=== PATIENT | female | born 1935 | race African-American/Black ===

== ENCOUNTER 2016-03-29 20:19 | Observation (INO) | payer MEDICARE ==
[2016-03-29 20:51] LABS: Hematocrit 37 % (35-47); Hemoglobin 11.9 g/dl (12.0-16.0); Mean Corpuscular HGB Conc 33 g/dl (31-36); Mean Corpuscular Hemoglobin 29 pg (27-31); Mean Corpuscular Volume 90 fL (80-97); Mean Platelet Volume 10 um3 (7.4-10.4); Red Blood Count 4.05 10^6/ul (4.0-5.4); Red Cell Distribution Width 14 % (10.5-15); White Blood Count 6.3 10^3/ul (3.5-10.8)
[2016-03-29 21:08] LABS: Calcium 9.7 mg/dL (8.6-10.3); EGFR Non-African American 53.6 (>60); Globulin 3.4 g/dL (2-4); Magnesium 1.9 mg/dL (1.9-2.7); Total Bilirubin 0.7 mg/dL (0.2-1.0); Total Protein 7.4 g/dL (6.4-8.9)
[2016-03-29 21:10] LABS: Troponin I 0.03 ng/mL (<0.04)
[2016-03-29 21:28] LABS: TSH (Thyroid Stimulating Horm) 23.48 mcIU/mL (0.34-5.60)
--- NOTE | 2016-03-29 21:36 | ED ---
Naresh Mata Anna, scribed for Inder Maier MD on 03/29/16 at 2023 . Syncope/Near Syncope - HPI Summary HPI Summary: Patient is a 80 y/o female BIBA to [facility] following sudden onset of a syncopal episode that occurred this evening. The patient was standing, when she lost consciousness, fell on her bottom, and slipped to the ground. Her family witnessed the fall and called the ambulance at that point. The patient was still unconscious upon arrival of EMS and was unconscious for six more minutes before she spontaneously regained consciousness. The patient reports that she skipped breakfast this morning but experienced no pain or other symptoms prior to the episode. Her daughter reports the patient experienced one episode of emesis while unconscious. She has no history of similar episodes. Her history is significant for HTN, but her blood pressure was normal tonight per EMS. - History Of Current Complaint Hx Obtained From: Patient, Family/Nursing Staffing Coordinator, EMS Onset/Duration: Sudden Onset, Lasting Minutes, Resolved - Spontaneously Timing: Minutes Context: Witnessed Activity At Onset: Other - Standing Associated Head Trauma: No Alleviating Factor(s): Spontaneous Resolution Frequency: Episodes x___ - 1 - Allergies/Home Medications Allergies/Adverse Reactions: Allergies Allergy/AdvReac Type Severity Reaction Status Date / Time No Known Allergies Allergy Verified 03/29/16 20:42 PMH/Surg Hx/FS Hx/Imm Hx Previously Healthy: Yes Cardiovascular History: Reports: Hx Hypertension - Family History Known Family History: Positive: Cardiac Disease Negative: Diabetes - Social History Occupation: Retired Alcohol Use: None Hx Substance Use: No Substance Use Type: Reports: None Hx Tobacco Use: Yes Smoking Status (MU): Former Smoker Review of Systems Negative: Chest Pain Positive: Vomiting Positive: Syncope All Other Systems Reviewed And Are Negative: Yes Physical Exam Triage Information Reviewed: Yes Vital Signs On Initial Exam: Temp Pulse Resp BP Pulse Ox 97.7 F 59 18 132/64 98 03/29/16 20:34 03/29/16 20:34 03/29/16 20:34 03/29/16 20:34 03/29/16 20:34 Vital Signs Reviewed: Yes Appearance: Positive: No Pain Distress, Thin Skin: Positive: Warm Eyes: Positive: SAMY ENT: Positive: Pharynx normal Neck: Positive: Supple, Nontender Respiratory/Lung Sounds: Positive: Clear to Auscultation, Breath Sounds Present Cardiovascular: Positive: RRR. Negative: Murmur Abdomen Description: Positive: Nontender, Soft Bowel Sounds: Positive: Present Musculoskeletal: Positive: Strength/ROM Intact Neurological: Positive: Sensory/Motor Intact, Alert, Oriented to Person Place, Time Psychiatric: Positive: Affect/Mood Appropriate Diagnostics - Vital Signs Vital Signs Temp Pulse Resp BP Pulse Ox 03/29/16 21:15 59 19 100/51 98 03/29/16 21:00 56 18 115/51 97 03/29/16 20:48 57 17 119/54 97 03/29/16 20:45 58 19 97 03/29/16 20:34 97.7 F 59 18 132/64 98 03/29/16 20:32 25 03/29/16 20:30 132/64 - Laboratory Lab Results: Lab Results 03/29/16 03/29/16 03/29/16 Range/Units 20:24 20:24 20:24 WBC 6.3 (3.5-10.8) 10^3/ul RBC 4.05 (4.0-5.4) 10^6/ul Hgb 11.9 L (12.0-16.0) g/dl Hct 37 (35-47) % MCV 90 (80-97) fL MCH 29 (27-31) pg MCHC 33 (31-36) g/dl RDW 14 (10.5-15) % Plt Count 176 (150-450) 10^3/ul MPV 10 (7.4-10.4) um3 Neut % (Auto) 47.4 (38-83) % Lymph % (Auto) 42.4 (25-47) % Cass % (Auto) 8.1 (1-9) % Eos % (Auto) 0.6 (0-6) % Baso % (Auto) 1.5 (0-2) % Absolute Neuts (auto) 3.0 (1.5-7.7) 10^3/ul Absolute Lymphs (auto) 2.7 (1.0-4.8) 10^3/ul Absolute Monos (auto) 0.5 (0-0.8) 10^3/ul Absolute Eos (auto) 0 (0-0.6) 10^3/ul Absolute Basos (auto) 0.1 (0-0.2) 10^3/ul Absolute Nucleated RBC 0 10^3/ul Nucleated RBC % 0 Sodium 135 (133-145) mmol/L Potassium 4.0 (3.5-5.0) mmol/L Chloride 100 L (101-111) mmol/L Carbon Dioxide 29 (22-32) mmol/L Anion Gap 6 (2-11) mmol/L BUN 16 (6-24) mg/dL Creatinine 1.00 H (0.51-0.95) mg/dL Est GFR ( Amer) 69.0 (>60) Est GFR (Non-Af Amer) 53.6 (>60) BUN/Creatinine Ratio 16.0 (8-20) Glucose 152 H (70-100) mg/dL Lactic Acid 1.2 (0.5-2.0) mmol/L Calcium 9.7 (8.6-10.3) mg/dL Magnesium 1.9 (1.9-2.7) mg/dL Total Bilirubin 0.70 (0.2-1.0) mg/dL AST 33 (13-39) U/L ALT 20 (7-52) U/L Alkaline Phosphatase 111 H (34-104) U/L Troponin I 0.03 (<0.04) ng/mL Total Protein 7.4 (6.4-8.9) g/dL Albumin 4.0 (3.2-5.2) g/dL Globulin 3.4 (2-4) g/dL Albumin/Globulin Ratio 1.2 (1-3) TSH 23.48 H (0.34-5.60) mcIU/mL Result Diagrams: 03/29/16 20:24 03/29/16 20:24 Lab Statement: Any lab studies that have been ordered have been reviewed, and results considered in the medical decision making process. - EKG 2020 Cardiac Rate: Bradycardia - 56 bpm EKG Rhythm: Sinus Rhythm Ectopy: None EKG Interpretation: LVH Course/Dx Assessment/Plan: Patient is a 80 y/o female BIBA to [facility] following sudden onset of a syncopal episode that occurred this evening. She has no history of similar episodes. An EKG reveals NSR at 56 bpm and LVH. Labs reveal a glucose level of 152 mg/dL and a TSH level of 23.48. We discussed patient care with Dr. Castro (hospitalist), who accepts the patient for admission. Patient and family are agreeable with this plan. - Diagnoses Provider Diagnoses: Syncope - Physician Notifications Discussed Care Of Patient With: Dr. Castro (hospitalist) at 20:32. Agrees to accept patient for admission. Instructed by Provider To: Admit As Inpatient - Critical Care Time Critical Care Time: 30-74 min Discharge - Discharge Plan Condition: Fair Disposition: ADMITTED TO [facility] The documentation as recorded by the Naresh bennett Anna accurately reflects the service I personally performed and the decisions made by , Inder Maier MD.
--- NOTE | 2016-03-29 22:00 | RAD ---
Indication: Syncope. Comparison: None. Technique: Noncontrast CT vertex of skull through foramen magnum. Report: Mild prominence of the cerebral sulci and cerebellar fissures. Proportional mild enlargement of the ventricles. Unremarkable basal cisterns. Decreased density in the periventricular and subcortical white matter while non-specific is most likely due to chronic microangiopathy. Negative for guido matter white matter obscuration, intra or extra-axial hemorrhage, or mass effect. Unremarkable orbital contents. Negative for calvarial or skull base fracture or suspicious focal osseous lesion. Clear visualized paranasal sinuses and mastoid air spaces. Negative for scalp hematoma. IMPRESSION: 1. No acute intracranial process evident. 2. Mild involutional change and stigmata of chronic small vessel ischemic disease.
--- NOTE | 2016-03-29 22:11 | RAD ---
Indication: Syncopal episode. Loss of consciousness. Comparison: None. Technique: Sitting AP and lateral chest views. Report: Clear lungs and pleural spaces. Negative for pneumothorax. Top normal heart size. Transcatheter aortic valve implantation device at the level of the root of the aorta. Unremarkable central pulmonary vasculature and mediastinal contours. Chronic appearing mild compression deformity of the approximate T11 vertebral body. IMPRESSION: No evidence for acute intrathoracic disease.
[2016-03-30] MEDS: NS 0.9% 1000 ML* 1,000 ML IV SCH ×2 (01:35→16:02)
[2016-03-30 03:12] LABS: Urine Bacteria Absent (Absent); Urine Bilirubin Negative (Negative); Urine Glucose Negative (Negative); Urine Nitrite Negative (Negative)
[2016-03-30] MEDS: Heparin VIAL(*) 5000 UNITS/ML VIAL (FIVE THOUSAND) SUBCUT SCH ×3 (06:39→21:09)
--- NOTE | 2016-03-30 09:20 | HP ---
HISTORY AND PHYSICAL: DATE OF ADMISSION: 03/29/16 CHIEF COMPLAINT: Passed out. HISTORY OF PRESENT ILLNESS: The patient is a 80-year-old woman, states she was out for dinner after seeing her grandson graduated from [employer] when she apparently passed out. Interestingly, the patient states she does not really remember passing out or when she woke up that it had happened. It started with the day when she woke up and got in the car to drive to [place]. She did not eat any breakfast. By the time she got here she also missed lunch. While waiting to eat at the restaurant where she states it was quite a long wait, she did eat 3 of her daughter's peanuts. Interestingly, she stated it was not the peanuts that caused the problem because they were so delicious. But apparently , right after that, she had passed out but does not recall anything. She denied any precipitating factors such as chest pain, shortness of breath, palpitations, dizziness. When she woke up, she was not confused. According to the witnesses however she did lose control of her urine. She currently feels well and has no complaints. This has never happened before. The patient has not been to the hospital before and did not recall her entire history, but apparently had an upper GI bleed requiring surgery to repair a perforated ulcer in the past. She has hypertension. She has a history of coronary artery disease with stent placement. ALLERGIES: She has no known drug allergies as per the patient. MEDICATIONS: She does not know her medications at this time. FAMILY HISTORY: Reviewed. Noncontributory. SOCIAL HISTORY: No tobacco, alcohol or recreational drug use. She is retired. She worked in the [employer]. She is a . Her daughter Sapphire Arrington is her healthcare proxy. She has 5 children. REVIEW OF SYSTEMS: A 14-point review of systems was completed with the patient. All pertinent positives and negatives are in the history of present illness otherwise is negative. PHYSICAL EXAMINATION GENERAL: A very pleasant woman lying in bed, in no acute distress. VITAL SIGNS: Temperature 97.7 degrees, heart rate 59 beats per minute, respiratory rate 18 breaths per minute, pulse ox 98%, blood pressure 132/64. HEENT: Normocephalic, atraumatic. Pupils equal, round, and reactive to light. Moist mucous membranes. NECK: Supple. No JVD, bruits, palpable thyroid, or lymphadenopathy. CHEST: Clear to auscultation and percussion bilaterally. CARDIOVASCULAR: S1, S2 appreciated. ABDOMEN: Positive bowel sounds in all 4 quadrants, soft, nontender, nondistended, no hepatosplenomegaly. EXTREMITIES: No cyanosis, clubbing, or edema. +2 peripheral pulses bilaterally. NEURO: Alert and oriented x3. Moves all extremities. SKIN: No rashes or abnormalities. LABORATORY DATA: White count 6.3, hemoglobin 11.9, hematocrit 37, platelets 176. Sodium 135, potassium 4.0, chloride 100, CO2 29, BUN 16, creatinine 1.0, glucose 152, trop is 0.03. Two repeat trops were 0.04. TSH is 22.48. Urinalysis shows some red cells, but otherwise is unremarkable except for some protein. Chest x-ray was interpreted by Radiology as no evidence for acute intrathoracic disease. Brain CT was interpreted by Radiology as no acute intracranial process evident. Mild involutional changes, stigmata of chronic small vessel ischemic disease. EKG shows normal sinus rhythm at 64 beats per minute. Normal axis. Some J point elevation but possible LVH. ASSESSMENT AND PLAN: 1. Syncope. Initially I felt this might be a seizure based on her urinary incontinence, but based on her history I think it is almost certainly going to be secondary to dehydration and not having her 3 meals in the entire day. I will however place her on security monitor, cycle her troponins as we have, and hydrate her and see how she feels in the morning. If it is otherwise unremarkable workup, I think she can go home as early as tomorrow. She might benefit from an EEG, but this can certainly be done as an outpatient. 2. Hypertension. BP is currently well controlled, but she does not know her medications. We will monitor. 3. Coronary artery disease. Again, I do not think this is a cardiac event and we will continue to monitor. 4. FEN: Regular diet. 5. DVT prophylaxis: Heparin subcu. 6. The patient is a full code. TIME SPENT: Over 80 minutes was spent on this H and P, more than 45 minutes was spent in direct [id number] contact with the patient in evaluation, physical exam, counseling, and coordination of care. CC: "Dr. Bledsoe, [place], [place]" [id number]/[facility] #: [id number] [facility] CENTERShefali
--- NOTE | 2016-03-30 14:57 | ECHO ---
Patient: JUSTINE CANNON [facility] Rec#: [id number] : 1935 Date: 03/30/2016 Age: 80y Height: 165.1 cm / 65.0 in Weight: 50.35 kg / 111.0 lbs Sex: F BSA: 1.54 Room#: [facility] Admit Date#: 03/29/2016 Type: Inpatient Referring: Marissa Magallon MD Reading: Keiry Dasilva MD Curtain Framer: Raymond Zhang RDCS Transthoracic Echocardiogram Indication: SYNCOPE BP: 115/55 Rhythm: NSR Findings History: SYNCOPE Technical Comments: The study quality is good. Completed 1340 Left Ventricle: The left ventricular chamber size is normal. Mild concentric left ventricular hypertrophy is observed. Global left ventricular wall motion and contractility are within normal limits. The left ventricle appears hyperdynamic. The estimated ejection fraction is 60-65%. Abnormal left ventricular diastolic filling is observed, consistent with impaired relaxation. Left Atrium: The left atrium is mild to moderately dilated. Right Ventricle: The right ventricular cavity size is normal. The right ventricular global systolic function is normal. Right Atrium: The right atrium is mildly dilated. Aortic Valve: The aortic valve is trileaflet. There is aortic annular calcification. Mitral Valve: There is mitral annular calcification. The mitral valve leaflets are mildly thickened. There is mild mitral regurgitation. There is no evidence of mitral stenosis. Tricuspid Valve: There is mild tricuspid regurgitation. The right ventricular systolic pressure is estimated at 29 mmHg. Pulmonic Valve: There is a trace pulmonic regurgitation. There is no pulmonic stenosis. Pericardium: There is no pericardial effusion. Aorta: There is no dilatation of the ascending aorta. There is no dilatation of the aortic arch. There is no dilation of the aortic root. Pulmonary Artery: The main pulmonary artery appears normal. Venous: The inferior vena cava appears normal in size. There is a greater than 50% respiratory change in the inferior vena cava dimension. Conclusions Mild concentric left ventricular hypertrophy is observed. The left ventricle appears hyperdynamic. Abnormal left ventricular diastolic filling is observed, consistent with impaired relaxation. The estimated ejection fraction is 60-65%. The right ventricular global systolic function is normal. There is mild mitral regurgitation. There is mild tricuspid regurgitation. The right ventricular systolic pressure is estimated at 29 mmHg. No prior echo to compare. Measurements Name Value Normal Range RVIDd (AP) 2D 2.5 cm (0.9 - 2.6) RVDdMajor (2D) 2.7 cm (2.2 - 4.4) RAd ISD 4CH 4.8 cm (3.4 - 4.9) RA (A4C)W 3.6 cm (2.9 - 4.6) IVSd (2D) 1.4 cm (0.6 - 1) LVPWd (2D) 0.9 cm (0.6 - 1) LVIDd (2D) 3.7 cm (3.6 - 5.4) LVIDs (2D) 2.8 cm - LV FS (2D) 25 % (25 - 45) Aortic Annulus 1.8 cm (1.4 - 2.6) Ao root diameter (2D) 2.4 cm (2.1 - 3.5) Ascending Ao 3 cm (2.1 - 3.4) Aortic arch 1.8 cm (1.8 - 3.4) LA dimension (AP) 2D 3.6 cm (2.3 - 3.8) LAd ISD 4CH 4.6 cm (2.9 - 5.3) LA ISD 4CH W 4.3 cm (2.5 - 4.5) Name Value Normal Range LA ESV SP 4CH (A/L) 47 ml - LA ESV SP 2CH (A/L) 62 ml - LA ESV BP (A/L) 58 ml - LA ESV BP (A/L) index 37.96 ml/m2 - LA ESV SP 4CH (MOD) 44 ml - LA ESV SP 2CH (MOD) 58 ml - Name Value Normal Range MV E-wave Vmax 0.84 m/sec - MV deceleration time 257 msec - MV A-wave Vmax 0.96 m/sec - MV E:A ratio 0.88 ratio - LV septal e' Vmax 16.8 m/sec - LV lateral e' Vmax 12 m/sec - LV E:e' septal ratio 0.05 ratio - LV E:e' lateral ratio 0.07 ratio - Name Value Normal Range LVOT diameter 1.4 cm - LVOT Vmax 1 m/sec - Name Value Normal Range TR Vmax 2.5 m/sec - TR peak gradient 26 mmHg - RAP 3 mmHg - RVSP 29 mmHg - IVC diameter 1.51 cm - Name Value Normal Range PV Vmax 0.93 m/sec - PV peak gradient 3.48 mmHg -
[2016-03-31] MEDS: Heparin VIAL(*) 5000 UNITS/ML VIAL (FIVE THOUSAND) SUBCUT SCH (05:49)
--- NOTE | 2016-03-31 06:25 | DS ---
DISCHARGE SUMMARY: DATE OF ADMISSION: 03/30/16 DATE OF ANTICIPATED DISCHARGE: 03/31/16 in the morning. PRIMARY CARE PROVIDER: Dr. Bledsoe, [place], [place]. DISCHARGE DIAGNOSES: 1. Syncopal episodes, most likely vasovagal. 2. Suspected dehydration. 3. Elevated TSH. SECONDARY DIAGNOSES: 1. History of dementia. 2. History of most likely hypothyroidism. 3. History of coronary artery disease and stent placement in the past. MEDICATIONS AT DISCHARGE: Unknown. Unfortunately, during the weekend, the patient's family stated that her pharmacy is closed and her primary care provider's office is closed. We are unable to get either the current medication list or the patient's medical records. LABORATORY DATA PERFORMED DURING THE HOSPITAL STAY: Included, the patient's troponins which ranged from 0.[address], impression: "No acute intracranial process evident. Mild involutional change and stigmata of chronic small vessel ischemic change." Transthoracic echocardiogram obtained on 03/30/16, impression: "Mild concentric left ventricular hypertrophy observed. The left ventricle appears hyperdynamic. Abnormal left ventricular diastolic filling observed consistent with impaired relaxation. The estimated ejection fraction was 60% to 65%. The right ventricular systolic function is normal. There was mild mitral regurgitation. There is mild tricuspid regurgitation. The right ventricular systolic pressure is estimated at 29 mmHg. No prior echo to compare." Multiple chest x-rays, impression: "No evidence of acute intrathoracic disease. " Urinalysis showed trace protein, trace esterase, no bacteria, trace wbc's. HOSPITALIZATION COURSE: Ms. Singh is a 80-year-old female who appears to have mild dementia and it appears to be her baseline. Please note that both the patient and the patient's family member present in the room, which is the patient's daughter, are poor historian. The patient and the patient's daughter came in by bus from [place] to [place] on 03/28/16 to attend the baseball game of the patient's grandson. They had a meal on 03/28/16, but apparently in the morning on 03/29/16, the patient skipped breakfast and lunch. They went to a restaurant in the afternoon on 03/29/16 to have a meal, and at that point, the patient was standing up and all of a sudden, had a loss of consciousness episode. She also vomited once. Apparently, there was no complaint of shortness of breath or chest pain before or after the episode. The patient presented to the ED for evaluation. Surprisingly enough, she was actually not hypoglycemic, although she had not eaten for almost 24 hours at that point. Her orthostatics were checked after initial intravenous fluids were administered in the ED and were not convincing of orthostasis at that point. The patient was observed on telemetry monitored bed with no arrhythmias noted. The patient's troponin was 0.03 and 0.04 with 0.04 being indeterminate, but at this point, the troponins were "flat." Once again, the patient complained of no chest pain whatsoever. At this point, the suspicion is the patient most likely was dehydrated and exhausted from the long travel. Her TSH was elevated at 23.4 with free T4 being 0.9. Apparently, the patient is on "thyroid medication," but once again we were not able to obtain the list of the patient's medications. Her daughter did not bring any medications with her and the pharmacy in [place] is closed for the weekend as per her daughter. Due to indeterminate troponin despite the patient being otherwise asymptomatic, transthoracic echocardiogram was obtained and as above mentioned was basically unremarkable. The patient was cleared for discharge on 03/30/16, but the patient's family had problems with arranging transportation of the patient to the hotel in the evening as well as arranging her clothing. They asked if they are able to leave the patient for the night. At this point, the plan is for the patient's daughter to come in the morning and pick the patient up from the hospital. Please note that the patient received intravenous hydration overnight. PHYSICAL EXAM AT THE TIME OF DICTATION: Blood pressure of 117/41, heart rate of 65 and regular, respiratory rate 18, oxygen saturation 100% on room air, temperature is 97.8. General: The patient is a very pleasant 80-year-old female, who stated that she is 74 years old. She thought that the year was 2017 , but it was in the summer. She was aware of being in the hospital. She could not remember her primary care physician's name. Her speech is very tangential. HEENT: Head: Atraumatic, normocephalic. Eyes: Pupils equal, round, and reactive to light and accommodation. Oropharynx clear. Mucosa moist. Neck: Supple. No JVD, no bruits bilaterally. Cardiovascular: Regular rate and rhythm. No murmur. Respiratory: Clear to auscultation bilaterally. Abdomen: Soft, nontender. Bowel sounds present in all 4 quadrants. Extremities: There is no edema. Pulses are +2 bilaterally. No clubbing or cyanosis. Neuro evaluation: Cranial nerves II through XII grossly intact. Motor strength is 5/ 5 bilaterally. Please note that this is a short summary of the patient's hospital stay. Please refer to further medical records for details. TIME SPENT: Approximately 35 minutes was spent on the patient's discharge discharge. CC: Dr. Bledsoe * [id number]/[facility] #: [id number]
[2016-03-31 07:19] VITALS: BP 118/50
== END 2016-03-31 10:05 | disposition home or self-care (01) ==
LOC: ED 20:19 → MEDTELE 23:00
PROVIDERS: ADMIT Internal Medicine; ATTEND Internal Medicine
DX: R55 Syncope and collapse (principal); F03.90 Unspecified dementia, unspecified severity, without behavioral disturbance, psychotic disturbance, mood disturbance, and anxiety; I10 Essential (primary) hypertension; I25.10 Atherosclerotic heart disease of native coronary artery without angina pectoris
CPT/HCPCS: 36415; 70450; 71020; 80053; 81003; 81015; 83605; 83735; 84439; 84443; 84484; 85025; 87086; 93005; 93306; 99285; G0378; J1644